=== PATIENT | female | born 1945 ===

== ENCOUNTER 2017-02-11 07:07 | Day surgery (SDC) | payer MEDICARE, OTHER ==
[2017-02-11 07:52] VITALS: BMI 27.4
[2017-02-11] MEDS ORDERED: Lactated Ringer's 500 ML IV ONE ×2 (08:22)
[2017-02-11] MEDS ORDERED: Propofol 10 mg/ml Inj (20 ML) ONE (08:28)
--- NOTE | 2017-02-11 08:29 | CP.SDSHP ---
Same Day Surgery H & P - History Proposed Procedure: colonoscopy Pre-Op Diagnosis: hematochezia. LLQ pain. Change in bowels - Previous Medical/Surgical History Cardiac: Hypertension, ASHD/CAD, Other (hyperlipidemia, ) Pulmonary: Asthma Neuro: Backaches Misc: Other (DJD, diverticulosis, gerd, ) Pain: 3. - Allergies Allergies: Allergies codeine Allergy (Verified 02/11/17 07:50) DIZZINESS - Physical Exam Vital Signs: Vital Signs 02/11/17 07:40 Temperature 97.9 F Pulse Rate 67 Respiratory 19 Rate Blood Pressure 102/72 O2 Sat by Pulse 98 Oximetry Mental Status: Alert & Oriented x3 Neuro: WNL Heart: WNL Lungs: WNL GI: WNL - Impression Impression: hematochezia. LLQ pain. change in bowels Pt. Evaluated Today:Candidate for Anesthesia & Procedure: Yes - Date & Time Date: 02/11/17 Time: 08:29 Short Stay Discharge - Short Stay Discharge Admitting Diagnosis/Reason for Visit: LEFT LOWER QUADRANT, CONSTIPATION Disposition: HOME/ ROUTINE
[2017-02-11 10:39] VITALS: TEMP 96.9; O2SAT 100
[2017-02-11 11:17] VITALS: BP 111/58; PULSE 60; RESP 15
== END 2017-02-11 10:15 | disposition home or self-care (01) ==
LOC: C.ENDO 07:07
PROVIDERS: ATTEND Internal Medicine Gastroenterology
DX: K57.90 Diverticulosis of intestine, part unspecified, without perforation or abscess without bleeding (principal); R10.814 Left lower quadrant abdominal tenderness; K59.00 Constipation, unspecified; K64.8 Other hemorrhoids; K66.0 Peritoneal adhesions (postprocedural) (postinfection)
CPT/HCPCS: 45378; J2704; J7120